=== PATIENT | female | born 1980 ===

== ENCOUNTER → 2018-07-12 | Outpatient (CLI) | payer OTHER | LOC: LAB SHORT 17:14 → LAB 17:14 | PROVIDERS: Nurse Practitioner Family | DX: Z01.419 Encounter for gynecological examination (general) (routine) without abnormal findings (principal) | CPT/HCPCS: G0145 ==

== ENCOUNTER 2022-07-17 01:58 | Day surgery (SDC) | payer OTHER ==
[~2022-07-17 01:58] MED LIST: IRON18 MG PO; Vitamin A and1 EACH
[2022-07-17] MEDS ORDERED: METF500C PO (09:11)
== END 2022-07-17 09:56 | disposition home or self-care (01) ==
LOC: ATC 01:58
DX: D50.9 Iron deficiency anemia, unspecified (principal)
CPT/HCPCS: J2916

== ENCOUNTER 2022-07-24 00:16 | Day surgery (SDC) | payer OTHER ==
[~2022-07-24 00:16] MED LIST changes: +METF500C PO
== END 2022-07-24 10:20 | disposition home or self-care (01) ==
LOC: ATC 00:16
DX: D50.9 Iron deficiency anemia, unspecified (principal)
CPT/HCPCS: J2916

== ENCOUNTER 2022-08-07 00:53 | Day surgery (SDC) | payer OTHER | END 2022-08-07 10:10 | disposition home or self-care (01) | LOC: ATC 00:53 | DX: D50.9 Iron deficiency anemia, unspecified (principal); E11.9 Type 2 diabetes mellitus without complications; E66.01 Morbid (severe) obesity due to excess calories; Z68.31 Body mass index [BMI] 31.0-31.9, adult; Z79.84 Long term (current) use of oral hypoglycemic drugs; Z79.899 Other long term (current) drug therapy | CPT/HCPCS: 96365; J2916 ==